=== PATIENT | male | born 2000 | race Caucasian/White ===

== ENCOUNTER 2022-05-19 01:14 | Emergency (ER) | payer SELFPAY ==
[~2022-05-19] VITALS: Ht 172.7 cm; Wt 82.0 kg
[2022-05-19 01:30] VITALS: BP 117/66
== END 2022-05-19 01:45 | disposition left against medical advice (07) ==
LOC: ER 01:44
DX: T40.2X1A Poisoning by other opioids, accidental (unintentional), initial encounter (principal); Y92.9 Unspecified place or not applicable
CPT/HCPCS: 99283